=== PATIENT | male | born 1970 | race Caucasian/White ===

== ENCOUNTER 2020-08-23 14:11 | Emergency (ER) | payer MEDICAID ==
[~2020-08-23] VITALS: Ht 185.4 cm; Wt 63.5 kg
[2020-08-23] MEDS ORDERED: SODIUM CHLORIDE 0.9% 1,000 ML IVB ONE (14:30)
[2020-08-23] MEDS ORDERED: KETOROLAC TROMETH 30 MG/ML 1ML VIAL IV ONE (14:30)
[2020-08-23 15:50] VITALS: BP 134/91
== END 2020-08-23 16:20 | disposition home or self-care (01) ==
LOC: EDBD 14:11 → ER 14:11
DX: F10.129 Alcohol abuse with intoxication, unspecified (principal); M54.5 Low back pain; I10 Essential (primary) hypertension; F17.210 Nicotine dependence, cigarettes, uncomplicated; Y90.8 Blood alcohol level of 240 mg/100 ml or more
CPT/HCPCS: 36415; 80320; 96361; 96374; 99283; J1885; J7030